=== PATIENT | female | born 1950 | race Hispanic/Latino ===

== ENCOUNTER → 2020-08-19 | Outpatient (RCR) | payer MEDICARE | LOC: PT 08-03 09:47 → OT 08-03 10:33 → PT 08-07 07:56 → OT 08-10 08:35 → PT 08-12 09:07 → OT 08-17 08:23 → PT 10:00 | PROVIDERS: ATTEND Specialist | DX: S16.1XXA Strain of muscle, fascia and tendon at neck level, initial encounter (principal); G56.01 Carpal tunnel syndrome, right upper limb; M75.81 Other shoulder lesions, right shoulder ==

== ENCOUNTER 2023-12-28 22:18 | Inpatient (IN) | payer MEDICARE ==
[~2023-12-28] VITALS: Ht 165.1 cm; Wt 90.7 kg
[2023-12-28 22:55] VITALS: TEMP 98.1
[2023-12-28] MEDS: DIPHENHYDRAMINE HCL INJ 50 MG/ML VIAL IV ONE (23:36)
[2023-12-28 23:47] LABS: BASOPHILS % 0.3 % (0.0-1.0); EOSINOPHILS # (AUTO) 0.1 (0.0-0.4); EOSINOPHILS % 0.8 % (0.0-6.0); HEMOGLOBIN 14.4 g/dL (12.0-16.0); LYMPHOCYTES % 24.7 % (18.0-39.1); MEAN CORPUSCULAR HEMOGLOBIN 32.5 pg (28-32); MEAN CORPUSCULAR HGB CONC 33.5 g/dL (31-35); MEAN CORPUSCULAR VOLUME 97.1 fL (81-99); MONOCYTES # (AUTO) 0.6 (0.2-0.8); NEUTROPHILS # (AUTO) 5.3 (2.1-6.9); NEUTROPHILS % 67.1 % (38.7-80.0); PLATELET COUNT 199 x10e3/uL (140-360); RED BLOOD COUNT 4.43 x10e6/uL (3.6-5.1); RED CELL DISTRIBUTION WIDTH 12.7 % (11.7-14.4); WHITE BLOOD COUNT 7.95 x10e3/uL (4.8-10.8)
[2023-12-28] MEDS: ONDANSETRON HCL INJ 2MG/ML 2ML 2 MG/ML VIAL IV STA (23:52)
[2023-12-28] MEDS: Morphine 2mg Syringe 2 MG/ML SYR IV ONE (23:53)
[2023-12-29] VITALS (13 sets, daily range): BP systolic 112–134; BP diastolic 45–71; PULSE 54–70; RESP 15–20; TEMP 97.5–99.2; O2SAT 95–100
[2023-12-29 00:02] LABS: ALANINE AMINOTRANSFERASE 21 IU/L (0-55); ALBUMIN 3.9 g/dL (3.5-5.0); ALBUMIN/GLOBULIN RATIO 1.2 (0.8-2.0); ALKALINE PHOSPHATASE 71 IU/L (40-150); ANION GAP 15.8 mmol/L (8-16); BILIRUBIN,TOTAL 0.4 mg/dL (0.2-1.2); BLOOD UREA NITROGEN 15 mg/dL (7-26); BUN/CREATININE RATIO 19 (6-25); CALCIUM 9.6 mg/dL (8.4-10.2); CARBON DIOXIDE 23 mmol/L (22-29); CHLORIDE 104 mmol/L (98-107); CREATINE KINASE 85 IU/L (29-168); EST GLOMERULAR FILTRATION RATE 77 ML/MIN (>=60); GLUCOSE 156 mg/dL (74-118); POTASSIUM 3.8 mmol/L (3.5-5.1); SODIUM 139 mmol/L (136-145); TOTAL PROTEIN 7.1 g/dL (6.5-8.1)
[2023-12-29 00:28] LABS: TROPONIN I < 0.05 ng/mL (0.0-0.40)
[2023-12-29] MEDS ORDERED: Morphine 4mg INJECTION 4 MG/ML INJ IV PRN (01:15)
[2023-12-29] MEDS ORDERED: ONDANSETRON HCL INJ 2MG/ML 2ML 2 MG/ML VIAL IV PRN (01:15)
[2023-12-29] MEDS ORDERED: SODIUM CHLORIDE FLUSH 10 ML SYR INJ PRN (01:15)
[2023-12-29] MEDS ORDERED: LATANOPROST2.5 ML OP (02:36)
[2023-12-29] MEDS ORDERED: TIMOPTIC 0.5%1 EACH OU (02:36)
[2023-12-29] MEDS ORDERED: LEVOTHYROXINE50 MCG PO (02:36)
[2023-12-29] MEDS ORDERED: ATORVASTATIN CA10 MG PO (02:36)
[2023-12-29] MEDS: DIPHENHYDRAMINE HCL INJ 50 MG/ML VIAL IV PRN (06:07)
[2023-12-29] MEDS: ASPIRIN 325 MG TAB EC PO SCH (08:37)
[2023-12-29 10:21] LABS: TROPONIN I 0.004 ng/mL (0-0.300)
[2023-12-29] MEDS: CLOPIDOGREL BISULFATE 75 MG TAB PO ONE (13:33)
[2023-12-29] MEDS: ENOXAPARIN INJ 80 MG/0.8 ML SYR SC SCH (13:33)
[2023-12-29] MEDS: ACETAMINOPHEN 325 MG TAB PO PRN (13:34)
[2023-12-29] MEDS: DONNATAL/LIDOCAINE/MAALOX 30 ML SUSP PO ONE (13:37)
[2023-12-29] MEDS ORDERED: IOPAMIDOL 370 MG/ML 100 ML INFUS..BTL INJ ONE (13:37)
[2023-12-29] MEDS: PANTOPRAZOLE SOD 40 MG TABEC PO SCH (13:37)
[2023-12-29] MEDS: PREDNISONE 20 MG TAB PO ONE (18:10)
[2023-12-29] MEDS: DIPHENHYDRAMINE HCL 30 GM TUBE TOP PRN (18:13)
[2023-12-29] MEDS: ATORVASTATIN 40 MG TAB PO SCH (20:44)
[2023-12-29] MEDS: LATANOPROST(OPTH) 2.5 ML BTL OP SCH (20:45)
[2023-12-29] MEDS ORDERED: ATORVASTATIN 10 MG TAB PO SCH (21:00)
[2023-12-30] VITALS (8 sets, daily range): BP systolic 100–129; BP diastolic 52–71; PULSE 69–94; RESP 18–21; TEMP 97.6–99.2; O2SAT 97–100
[2023-12-30] MEDS: DIPHENHYDRAMINE HCL INJ 50 MG/ML VIAL IV PRN (01:52)
[2023-12-30 05:26] LABS: BASOPHILS % 0.1 % (0.0-1.0); HEMOGLOBIN 14.3 g/dL (12.0-16.0); LYMPHOCYTES # (AUTO) 1.1 (1.0-3.2); LYMPHOCYTES % 12.5 % (18.0-39.1); MEAN CORPUSCULAR HEMOGLOBIN 32.2 pg (28-32); MEAN CORPUSCULAR HGB CONC 33.3 g/dL (31-35); MEAN CORPUSCULAR VOLUME 96.8 fL (81-99); MONOCYTES # (AUTO) 0.3 (0.2-0.8); MONOCYTES % 3.6 % (4.4-11.3); NEUTROPHILS # (AUTO) 7.2 (2.1-6.9); NEUTROPHILS % 83.4 % (38.7-80.0); PLATELET COUNT 196 x10e3/uL (140-360); RED BLOOD COUNT 4.44 x10e6/uL (3.6-5.1); RED CELL DISTRIBUTION WIDTH 12.7 % (11.7-14.4); WHITE BLOOD COUNT 8.57 x10e3/uL (4.8-10.8)
[2023-12-30] MEDS: LEVOTHYROXINE SODIUM 25 MCG TABLET PO SCH (05:48)
[2023-12-30 06:09] LABS: TROPONIN I 0.004 ng/mL (0-0.300)
[2023-12-30 06:15] LABS: ANION GAP 13.3 mmol/L (8-16); CALCIUM 9.3 mg/dL (8.4-10.2); CREATININE, SERUM 0.75 mg/dL (0.57-1.11); POTASSIUM 4.3 mmol/L (3.5-5.1)
[2023-12-30 07:13] LABS: CHOL/HDL RATIO 4.2 (3.0-3.6)
[2023-12-30] MEDS: ASPIRIN 81 MG ENTERIC COATED PO SCH (08:20)
[2023-12-30] MEDS: TIMOLOL MALEATE 0.5% OPTH DRP 5 ML BTL OU SCH (08:26)
[2023-12-30] MEDS: BISACODYL 10 MG SUPP PR PRN (14:10)
[2023-12-30] MEDS: METHYLPREDNISOLONE SOD SUCC 125 MG/2ML VIAL IV ONE (14:10)
[2023-12-31 00:01] VITALS: BP 141/64; PULSE 83; RESP 18; TEMP 98.2; O2SAT 100
[2023-12-31 05:33] LABS: BASOPHILS % 0.2 % (0.0-1.0); HEMATOCRIT 43.5 % (34.2-44.1); HEMOGLOBIN 14.6 g/dL (12.0-16.0); LYMPHOCYTES # (AUTO) 0.8 (1.0-3.2); LYMPHOCYTES % 6.4 % (18.0-39.1); MEAN CORPUSCULAR HEMOGLOBIN 32.6 pg (28-32); MEAN CORPUSCULAR HGB CONC 33.6 g/dL (31-35); MEAN CORPUSCULAR VOLUME 97.1 fL (81-99); MONOCYTES # (AUTO) 0.2 (0.2-0.8); NEUTROPHILS # (AUTO) 10.9 (2.1-6.9); PLATELET COUNT 188 x10e3/uL (140-360); RED BLOOD COUNT 4.48 x10e6/uL (3.6-5.1); RED CELL DISTRIBUTION WIDTH 12.7 % (11.7-14.4); WHITE BLOOD COUNT 11.94 x10e3/uL (4.8-10.8)
[2023-12-31 06:00] LABS: ANION GAP 15.4 mmol/L (8-16); CREATININE, SERUM 0.82 mg/dL (0.57-1.11); POTASSIUM 4.4 mmol/L (3.5-5.1)
[2023-12-31 08:53] VITALS: BP 119/57; PULSE 72; RESP 20; TEMP 98.6; O2SAT 98
[2023-12-31 09:05] VITALS: BP 119/57; PULSE 72; RESP 20; TEMP 98.6; O2SAT 98
[2023-12-31 12:11] VITALS: BP 136/66; PULSE 73; RESP 20; TEMP 98.6; O2SAT 98
[2023-12-31 13:11] LABS: FREE THYROXINE INDEX 0.0265 (1.4-3.8); T3 UPTAKE 0.53 % (22.5-37.0); THYROID STIMULATING HORMONE 0.58 uIU/mL (0.350-4.940)
[2023-12-31] MEDS: PREDNISONE 20 MG TAB PO ONE (15:10)
[2023-12-31] MEDS: HYDROXYZINE HCL 25 MG TAB PO PRN (15:10)
[2023-12-31 16:21] VITALS: BP 159/77; PULSE 62; RESP 20; TEMP 97.6; O2SAT 98
[2023-12-31 20:00] VITALS: BP 139/54; PULSE 69; RESP 18; TEMP 97.8; O2SAT 96
[2024-01-01] VITALS (8 sets, daily range): BP systolic 102–135; BP diastolic 40–63; PULSE 66–83; RESP 17–20; TEMP 98.4–102; O2SAT 97–100
[2024-01-01 13:25] LABS: THYROID STIMULATING HORMONE 0.773 uIU/mL (0.350-4.940)
[2024-01-01] MEDS ORDERED: REGADENOSON 0.4 MG/5 ML SYR IV ONE (14:05)
[2024-01-02] VITALS (7 sets, daily range): BP systolic 100–116; BP diastolic 46–70; PULSE 59–87; RESP 16–18; TEMP 97.7–98.6; O2SAT 94–100
[2024-01-02 06:00] LABS: BASOPHILS % 0.1 % (0.0-1.0); EOSINOPHILS % 0.4 % (0.0-6.0); HEMATOCRIT 38.9 % (34.2-44.1); HEMOGLOBIN 12.6 g/dL (12.0-16.0); LYMPHOCYTES # (AUTO) 1.3 (1.0-3.2); LYMPHOCYTES % 16.4 % (18.0-39.1); MEAN CORPUSCULAR HEMOGLOBIN 32.1 pg (28-32); MEAN CORPUSCULAR HGB CONC 32.4 g/dL (31-35); MEAN CORPUSCULAR VOLUME 99.2 fL (81-99); MONOCYTES # (AUTO) 0.2 (0.2-0.8); MONOCYTES % 2.1 % (4.4-11.3); NEUTROPHILS # (AUTO) 6.2 (2.1-6.9); NEUTROPHILS % 80.5 % (38.7-80.0); PLATELET COUNT 165 x10e3/uL (140-360); RED BLOOD COUNT 3.92 x10e6/uL (3.6-5.1); RED CELL DISTRIBUTION WIDTH 13.2 % (11.7-14.4); WHITE BLOOD COUNT 7.75 x10e3/uL (4.8-10.8)
[2024-01-02 06:28] LABS: ANION GAP 11.8 mmol/L (8-16); CALCIUM 8.4 mg/dL (8.4-10.2); CREATININE, SERUM 0.8 mg/dL (0.57-1.11); POTASSIUM 3.8 mmol/L (3.5-5.1)
[2024-01-02] MEDS ORDERED: LIDOCAINE HCL 2% LOCAL INJ 5 ML SDV VIAL INJ ONE (15:39)
[2024-01-02] MEDS ORDERED: PROPOFOL IV EMULSION 10 MG/ML 20 ML VIAL ONE (15:39)
[2024-01-02] MEDS ORDERED: FENTANYL CITRATE/PF 100MCG/2 ML INJ ONE (15:41)
[2024-01-03] VITALS: BP 95/43; PULSE 65; RESP 20; TEMP 97.7; O2SAT 100
[2024-01-03 05:35] VITALS: BP 108/54; PULSE 63; RESP 20; TEMP 97.5; O2SAT 97
[2024-01-03 08:00] VITALS: BP 113/66; PULSE 61; RESP 19; TEMP 98.7; O2SAT 100
[2024-01-03 09:00] VITALS: BP 113/66; PULSE 61; RESP 19; TEMP 98.7; O2SAT 100
[2024-01-03] MEDS ORDERED: ATORVASTATIN CA40 MG PO (11:36)
[2024-01-03] MEDS ORDERED: PROTONIX20 MG PO (11:36)
[2024-01-03] MEDS ORDERED: HYDROXYZINE HCL25 MG PO (11:36)
[2024-01-03 12:00] VITALS: BP 110/52; PULSE 60; RESP 20; TEMP 98.4; O2SAT 99
== END 2024-01-03 12:58 | disposition home or self-care (01) | DRG 392 ==
LOC: ER 22:48 → ERHOLD 12-29 01:07 → MED/SURG2 12-29 02:15 → OBSVTOIN 12-30 20:29
PROVIDERS: ADMIT Internal Medicine; ATTEND Internal Medicine
PROC: 0DB78ZX Excision of Stomach, Pylorus, Via Natural or Artificial Opening Endoscopic, Diagnostic (ICD-10-PCS; 2024-01-02)
PROC: 0D758ZZ Dilation of Esophagus, Via Natural or Artificial Opening Endoscopic (ICD-10-PCS; principal; 2024-01-02 15:56)
PROC: 0DD58ZX Extraction of Esophagus, Via Natural or Artificial Opening Endoscopic, Diagnostic (ICD-10-PCS; 2024-01-02 15:56)
PROC: 0DB68ZX Excision of Stomach, Via Natural or Artificial Opening Endoscopic, Diagnostic (ICD-10-PCS; 2024-01-02 15:56)
DX: R13.10 Dysphagia, unspecified (principal); E03.9 Hypothyroidism, unspecified; E78.00 Pure hypercholesterolemia, unspecified; K21.9 Gastro-esophageal reflux disease without esophagitis; L27.0 Generalized skin eruption due to drugs and medicaments taken internally; K44.9 Diaphragmatic hernia without obstruction or gangrene; K29.70 Gastritis, unspecified, without bleeding; Z79.890 Hormone replacement therapy; Z90.49 Acquired absence of other specified parts of digestive tract; Z90.710 Acquired absence of both cervix and uterus; Z82.49 Family history of ischemic heart disease and other diseases of the circulatory system
CPT/HCPCS: 36415; 43235; 43239; 43450; 71045; 71260; 78452; 80048; 80053; 80061; 82550; 84436; 84443; 84479; 84484; 85025; 88112; 88305; 88312; 88342; 93005; 93017; 93306; 94799; 99284; A9502; G0378; J1200; J1650; J2003; J2270; J2405; J2470; J2919; J3410; J7512; Q9967